=== PATIENT | male | born 1955 | race Caucasian/White ===

== ENCOUNTER 2022-03-29 06:48 | Emergency (ER) | payer MEDICARE, OTHER ==
[2022-03-29 07:00] VITALS: O2SAT 97
[2022-03-29] MEDS ORDERED: TORAdol 30 mg Injection IM ONE (07:27)
[2022-03-29] MEDS ORDERED: TORAdol 30 mg Injection ONE (07:30)
--- NOTE | 2022-03-29 07:55 | ERPHSYRPT ---
- History of Present Illness Time Seen by Provider: 03/29/22 07:09 Source: patient Exam Limitations: no limitations Patient Subjective Stated Complaint: pt states he fell out of the back of a trailer yesterday, states he hurt his r arm and r hip and knee during the fall, rates pain as 10/10 Triage Nursing Assessment: pt is alert and oriented, pt arrived in WC, states his knee is 10/10 pain, knee is visibly swollen, pt has swelling in r wrist. Physician History: 67 years old male presented in the ER with chief complaint of fall yesterday. Patient report he was loading lumbar in a trailer, slipped and fell on right hip and right elbow/forearm. He also did hit his right knee which he was unaware until he woke up this morning and it was swollen with moderate to severe sharp throbbing pain with minimal movements, palpation and difficulty weightbearing. Also has a bump/bruise on the right hip but no difficulty movements. Minimal swelling right forearm but no limited range of motion at elbow/wrist and minimal pain. Did not hit his head, no loss of consciousness. No injury anywhere else. Does have history of surgical intervention and right knee almost 50 years ago. Occurred: yesterday Reason for Fall: slipped Injuries/Pain Location: upper extremity, lower extremity Loss of Consciousness: no loss of consciousness Quality: sharpness Severity of Pain-Max: severe Severity of Pain-Current: severe Modifying Factors: Improves With: cold therapy. Worsens With: movement Associated Symptoms (Fall): extremity injury, No abdominal pain, No back pain, No confusion, No chest pain, No dizziness, No headache, No lightheadedness, No muscle spasms, No nausea, No neck pain, No ringing in ears, No seizures, No shortness of breath, No slurred speech, No trouble walking, No vomiting, No vision changes Allergies/Adverse Reactions: Penicillins Allergy (Verified 01/08/13 18:11) Hx Tetanus, Diphtheria Vaccination/Date Given: Yes (5 YEARS AGO) Hx Influenza Vaccination/Date Given: No Hx Pneumococcal Vaccination/Date Given: No Travel Risk - International Travel Have you traveled outside of the country in past 3 weeks: No - Coronavirus Screening Are you exhibiting any of the following symptoms?: No Close contact with a COVID-19 positive Pt in past 14-21 Days: No - Vaccine Status Have you recieved a Covid-19 vaccination: No - Review of Systems Constitutional: No Symptoms Ears, Nose, & Throat: No Symptoms Respiratory: No Symptoms Cardiac: No Symptoms Abdominal/Gastrointestinal: No Symptoms Genitourinary Symptoms: No Symptoms Musculoskeletal: Fall, Injury, Joint Pain, Joint Swelling Skin: No Symptoms Neurological: No Symptoms Psychological: No Symptoms Endocrine: No Symptoms Hematologic/Lymphatic: No Symptoms Immunological/Allergic: No Symptoms - Past Medical History Pertinent Past Medical History: Yes Other Medical History: sleep apnea - Past Surgical History Past Surgical History: Yes Musculoskeletal: Orthopedic Surgery - Social History Smoking Status: Former smoker Exposure to second hand smoke: No Drug Use: none Patient Lives Alone: No - Nursing Vital Signs Nursing Vital Signs: Initial Vital Signs Temperature 97.6 F 03/29/22 06:49 Pulse Rate 76 03/29/22 06:49 Respiratory Rate 18 03/29/22 06:49 Blood Pressure 160/96 03/29/22 06:49 O2 Sat by Pulse Oximetry 97 03/29/22 06:49 Pain Scale Pain Intensity 6 - Mónica Coma Score Best Eye Response (Mónica): (4) open spontaneously Best Verbal Response (Mónica): (5) oriented Best Motor Response (Mónica): (6) obeys commands [place] Total: 15 - Physical Exam General Appearance: no apparent distress, alert Head Injury: no evidence of injury Eye Exam: PERRL/EOMI, eyes nml inspection ENT Exam: airway nml, No evidence of ENT injury, No dental injury Neck Exam: supple, trachea midline, full range of motion, normal alignment Respiratory/Chest Exam: normal breath sounds, respiratory distress, No chest tenderness Cardiovascular Exam: normal heart sounds, regular rate/rhythm Extremity Exam: joint swelling (Right knee with positive ballottement.), limited range of motion, hip tenderness (Right), joint effusion, pain with movement, pedal edema, swelling, tenderness Neurologic Exam: alert, oriented x 3, cooperative, normal mood/affect Skin Exam: normal color SpO2 Interpretation: normal SpO2: 97 O2 Delivery: Room Air Ordered Tests: Active Orders 24 hr Category Date Time Status HIP UNI (2V) INCL PEL IF DONE Stat Exams 03/29/22 08:04 Completed KNEE (3 VIEWS) Stat Exams 03/29/22 08:05 Completed Medication Summary Discontinued Medications Generic Name Dose Route Start Last Admin Trade Name Freq PRN Reason Stop Dose Admin Ketorolac Tromethamine 30 mg 03/29/22 07:27 03/29/22 07:30 Ketorolac Tromethamine 30 Mg/Ml Inj IM 03/29/22 07:28 30 mg STAT ONE Administration Ketorolac Tromethamine Confirm 03/29/22 07:30 Ketorolac Tromethamine 30 Mg/Ml Inj Administered 03/29/22 07:31 Dose 30 mg .ROUTE .STK-MED ONE - Progress Progress: improved, pain not gone completely, re-examined Progress Note: 03/29/22 07:54 67 years old is evaluated for fall with right knee and hip injury. Has minimal to no tenderness in right upper extremity. Do not think needs imaging. He is given Toradol for symptomatic relief, on reevaluation feeling much better. X- rays right knee reviewed by me to be-year-old no acute fracture dislocation but has effusion. Placed in a Lex wrap, crutches, nonweightbearing. X-rays right hip negative for any acute fracture dislocation reviewed by me, official report pending. We will give him NSAIDs to go home and outpatient Ortho phytic surgery follow-up recommended. Discussed signs symptoms of worsening needing return to ER which he seems understanding. Counseled pt/family regarding: diagnosis, need for follow-up, rad results - Departure Departure Disposition: Home Clinical Impression: Fall, Right knee sprain, Contusion of hip, right Condition: Stable Critical Care Time: No Referrals: BRYAN MARQUIS MD [Primary Care Provider] - Follow Up with PCP/3 days Instructions: Swollen Joints (DC) Additional Instructions: Take Tylenol/diclofenac as needed for pain. Intermittent ice application. Weightbearing only as tolerated. Follow-up with [facility] for reevaluation tomorrow. Return to ER for worsening pain swelling etc. [facility]) [facility] in [place], [place] Located in: [facility] Address: [address] , [place] [address] Opens 8AM Prescriptions: Diclofenac Sodium 50 mg PO TID PRN 7 Days #30 tab PRN Reason: Pain
[2022-03-29 08:21] VITALS: BP 150/89; PULSE 74
--- NOTE | 2022-03-29 18:33 | XRAY ---
Indication: Pain and swelling following fall. Comparison: None 3 view right knee demonstrates osteopenia, mild/moderate tricompartmental degenerative changes with small anterior heterotopic ossification, large nonspecific effusion, small posterior fabella, and minimal vascular calcifications. No other bony, articular, or soft tissue abnormalities.
--- NOTE | 2022-03-29 18:33 | XRAY ---
Indication: Pain following fall. Comparison: None 2 view right hip demonstrates osteopenia and minimal degenerative joint space narrowing. No other bony, articular, or soft tissue abnormalities.
== END 2022-03-29 08:22 | disposition home or self-care (01) ==
LOC: ED 06:48
DX: S83.91XA Sprain of unspecified site of right knee, initial encounter (principal); S70.01XA Contusion of right hip, initial encounter; W17.89XA Other fall from one level to another, initial encounter; Z28.310 Unvaccinated for COVID-19
CPT/HCPCS: 73502; 73562; 96372; 99283; J1885